=== PATIENT | female | born 1970 | race Caucasian/White ===

== ENCOUNTER 2018-12-07 13:54 | Emergency (ER) | payer BC ==
[~2018-12-07] VITALS: Ht 157.5 cm; Wt 70.3 kg
[2018-12-07 14:00] VITALS: BP_SYST 151
[2018-12-07 14:50] VITALS: BP_SYST 131
== END 2018-12-07 14:50 | disposition home or self-care (01) ==
LOC: SED 13:54
DX: L25.9 Unspecified contact dermatitis, unspecified cause (principal); M79.645 Pain in left finger(s); E11.9 Type 2 diabetes mellitus without complications; I10 Essential (primary) hypertension
CPT/HCPCS: 99283